=== PATIENT | female | born 1985 | race Caucasian/White ===

== ENCOUNTER 2020-10-05 08:40 | Inpatient (IN) ==
[2020-10-05] MEDS ORDERED: TERBUTALINE SULFATE 1 MG/ML VIAL SQ PRN (08:47)
--- NOTE | 2020-10-05 08:57 | Obstetrical Progress Note ---
Date of Service October 05, 2020 Assessment & Plan (1) Supervision of resulting from assisted reproductive technology, antepartum: (2) Breech presentation: Subjective 35yo at 38.1 weeks GA. Presents for ECV for persistent breech presentation. Consents for external cephalic version reviewed and signed today. Denies regular contractions, VB, LOF. Good FM. 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 muscular VSD, ok to deliver at [facility]. Followup 2w after delivery with peds. *Growth US Q 4wks @28wks *Weekly NSTs @36wks *Weekly ABIOLA's @36wks(ICSI only) Nuchal translucency scheduled 04/12/20 with [facility] *NT inconclusive, pt requesting amnio. scheduled for 05/09/20 - neg AFP and normal chromosomes Breech presentation *ECV scheduled 10/05 with Andrew. C/S SCHEDULED FOR 10/[address] PENDLETON Physical Exam Constitutional: WD/WN, vitals as above Gastrointestinal (Abdomen): Inspection/Auscultation: abdomen not distended Percussion/Palpation: abdomen soft; abdomen nontender, no guarding and abdomen not rigid Psychiatric: A+Ox3, euthymic affect Genitourinary: OB Exam Abdomen: + breech OB Exam Monitor Tracing: + external FHT monitor used, + external uterine monitor used, + category I and + normal FHT variability Reactive NST prior to procedure. PG Care Time/CCT Total # of Minutes Spent Total Time Spent with Patient: Total time spent is greater than 50% in coordination of care (as documented) at patient's floor/unit and/or counseling patient: Coding Diagnoses Supervision of resulting from assisted reproductive technology, antepartum O09.819 Breech presentation O32.1XX0
[2020-10-05 09:23] LABS: Basophils # (auto) 0.04 K/uL (0-0.2); Basophils % (auto) 0.4 %; Eosinophils # (auto) 0.18 K/uL (0-0.5); Eosinophils % (auto) 1.9 %; Hematocrit (blood only) 35.9 % (37-47); Hemoglobin 12.5 g/dL (12.0-16.0); Immature Granulocytes # (auto) 0.05 K/uL (0.00-0.02); Immature Granulocytes % (auto) 0.5 %; Lymphocytes # (auto) 3.45 K/uL (1.2-3.4); Lymphocytes % (auto) 36.5 %; Mean Corpuscular Hemoglobin 32.7 pg (25-34); Mean Corpuscular Hgb Conc 34.8 g/dL (32-36); Mean Platelet Volume 10.7 fL (7.4-10.4); Monocytes # (auto) 1.02 K/uL (0.11-0.59); Monocytes % (auto) 10.8 %; Neutrophils # (auto) 4.71 K/uL (1.4-6.5); Neutrophils % (auto) 49.9 %; Platelet Count 338 K/uL (130-400); RDW Coefficient of Variation 13.5 % (11.5-14.5); RDW Standard Deviation 46.2 fL (36.4-46.3); Red Blood Count 3.82 M/uL (4.2-5.4); White Blood Count 9.45 K/uL (4.8-10.8)
--- NOTE | 2020-10-05 11:34 | Ultrasound Report ---
US OB limited (NO CHARGE) CLINICAL HISTORY: ECV monitoring COMPARISON STUDY: 10/03/2020 FINDINGS: Ultrasound assistance was provided by the vacuum cleaner repair person during an external cephalic version. There is no radiologist participation. IMPRESSION: Ultrasound assistance provided by the vacuum cleaner repair person. ACT 112: Negative or not required by law. Electronically signed by: Mejia Lockhart M.D. 10/05/2020 11:33 AM
[2020-10-05] MEDS ORDERED: LACTATED RINGER'S 1,000 ML IV ONE ×2 (11:36→12:30)
[2020-10-05] MEDS ORDERED: LACTATED RINGER'S 1,000 ML IV PRN (14:07)
[2020-10-05] MEDS ORDERED: OXYTOCIN 30 UNITS/500 ML BAG IV PRN ×2 (14:07→14:08)
[2020-10-05] MEDS ORDERED: NALOXONE HCL 1 MG in SODIUM CHLORIDE 0.9% 1000ML 1,000 ML IV PRN (14:36)
[2020-10-05] MEDS ORDERED: diphenhydrAMINE 50 MG/ML VIAL IV PRN (14:36)
[2020-10-05] MEDS ORDERED: NALOXONE HCL 0.08 MG in SYRINGE 1.8 ML IV PRN (14:36)
[2020-10-05] MEDS ORDERED: MoRPHine SULFATE PF 1 MG/ML 10 ML AMP/VIAL INT SPINAL ONE (14:36)
[2020-10-05] MEDS ORDERED: NALOXONE HCL 0.4 MG/1 ML VIAL/CARP IV PRN (14:36)
[2020-10-05] MEDS ORDERED: ePHEDrine sulfate 50 MG/ML AMP IV PRN (14:36)
[2020-10-05] MEDS ORDERED: LACTATED RINGER'S 500 ML IV PRN (14:36)
[2020-10-05] MEDS ORDERED: ONDANSETRON INJ 2 MG/ML 2 ML VIAL IV PRN (14:36)
--- NOTE | 2020-10-05 14:36 | Anesthesiology Consultation ---
Date of Service October 05, 2020 Assessment & Plan ASA ASA3E Proposed Anesthesia Anesthesia Type: Spinal Risk / Benefits Reviewed With: PT / POA / Parent / Guardian, Accepts Plan and Informed Consent Obtained History Height/Weight Height: 5 ft 3 in Weight: 60.781 kg Allergies Allergy/AdvReac Type Severity Reaction Status Date / Time Sulfa (Sulfonamide Allergy Intermediate Vomit, Verified 10/05/20 08:57 Antibiotics) diarrhea chlorhexidine Allergy Mild RASH Verified 10/05/20 08:57 shellfish derived Allergy Vomiting Verified 10/05/20 08:58 Medications Home Medications Medication Instructions Recorded Confirmed Last Taken enoxaparin 40 mg SUBCUT DAILY 03/01/20 10/05/20 10/04/20 22:00 sertraline 50 mg tablet 50 mg PO DAILY #90 tab 06/06/20 10/05/20 10/04/20 21:30 prenat.vits,sophia,udo-qocr-vtozl 1 tab PO DAILY 10/05/20 10/05/20 10/04/20 21:30 [ Vitamin] Active Medications Generic Name Dose Route Start Last Admin Trade Name Freq PRN Reason Stop Dose Admin Terbutaline Sulfate 0.25 mg 10/05/20 08:47 10/05/20 10:48 Terbutaline Sulfate 1 Mg/Ml Vial SQ 11/04/20 08:46 0.25 mg ONCE PRN Administration Contractions NPO Date Last Intake of Fluids: 10/05/20 Time Last Intake of Fluids: 00:00 Date Last Intake of Solids: 10/05/20 Time Last Intake of Solids: 00:00 Past Medical History Medical History 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 Cerebral venous sinus thrombosis During treatment for a LL which was provoked by L asparaginase and was treated with Lovenox for a few months. No repeat thromboses since that time. 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 Hypertrophy of nasal turbinates Leukemia in remission 2009 Vaginal bleeding before 22 weeks gestation Exercise / Class Metabolic Activity 1 > 8 Run/Swim/Ski/Tennis Past Family History Family History Mother Hypertension Father Hypertension Past Surgical History Surgical History No history of previous surgery S/P colonoscopy Stem cells transplant status 2009 Past Anesthesia History No Hx of Anesthesia Complications and No Family Hx of Anesthesia Complications History of PONV No Hx of PONV and No Hx of Motion Sickness Social History Smoking Status: Never smoker Hx Alcohol Use: No Hx Substance Use: No Review of Systems denies fever/cough/ colds/ chest pain/ SOB/ IRMA denies IRMA Physical Exam Vital Signs Last Vital Signs Temp 37.3 C 10/05/20 08:52 Pulse 79 10/05/20 11:13 Resp 20 10/05/20 11:13 BP 91/52 L 10/05/20 11:13 ENMT Mouth: no TMJ abnormality and no dentition abnormality Thyromental Distance: > or= 3.5 Finger Breadths Mallampati Class: II Neck neck extension not limited Respiratory normal respiratory effort; no respiratory distress Auscultation: lungs clear to auscultation bilaterally Cardiovascular Rate/Rhythm: regular rate and regular rhythm Neurologic moves all extremities Psychiatric Orientation: alert and oriented x 3 Testing Laboratory Results 10/05/20 09:13 Blood Type O Positive 10/05/20 09:13 Antibody Screen NEGATIVE 10/05/20 09:13
[2020-10-05] MEDS ORDERED: OXYTOCIN 10 UNITS/ML VIAL ONE (14:42)
[2020-10-05] MEDS ORDERED: MoRPHine SULFATE PF 1 MG/ML 10 ML AMP/VIAL ONE (14:42)
[2020-10-05] MEDS ORDERED: fentaNYL citrate 100 MCG/2 ML VIAL ONE (14:42)
[2020-10-05] MEDS ORDERED: NO NARCOTICS OR SEDATIVES SCH (14:45)
[2020-10-05] MEDS ORDERED: SODIUM CHLORIDE 0.9% 1000ML 1,000 ML IV SCH (14:45)
[2020-10-05] MEDS ORDERED: DC INTRASPINAL MORPHINE SCH (14:45)
--- NOTE | 2020-10-05 14:54 | History & Physical Report ---
Date of Service October 05, 2020 Assessment & Plan (1) Breech presentation: (2) Successful external cephalic version: Maricel is a 35-year-old at 38 weeks 1 day gestational age presented for external cephalic version for persistent breech presentation. A successful external cephalic version was performed. During the monitoring phase after completion of that ECV recurrent variable deceleration and occasional deceleration is a lasting 3-4 minutes to the 70s was noted. As result we dis cussed delivery and after re-evaluation ultrasound there was noted be funic presentation which will require a as discussed per HPI. consents reviewed and signed. We will proceed with a section secondary to persistent category 2 tracing/ distress with funic presentation. (3) Funic presentation: (4) Supervision of resulting from assisted reproductive technology, antepartum: (5) resulting from in vitro fertilization: (6) distress affecting care: Admission and Anticipated Discharge Date Admission Date: October 05, 2020 History of Present Illness Primary Care Provider: Salvador Alston MD 35yo at 38.1 weeks GA. Presents for ECV for persistent breech presentation. Consents for external cephalic version reviewed and signed today. Denies regular contractions, VB, LOF. Good FM. 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 muscular VSD, ok to deliver at [facility]. Followup 2w after delivery with peds. *Growth US Q 4wks @28wks *Weekly NSTs @36wks *Weekly ABIOAL's @36wks(ICSI only) Nuchal translucency scheduled 04/12/20 with [facility] *NT inconclusive, pt requesting amnio. scheduled for 05/09/20 - neg AFP and normal chromosomes Breech presentation *ECV scheduled 10/05 with Andrew. C/S SCHEDULED FOR 10/[address] PENDLETON After a successful ECV was performed a period of extended monitoring was initiated. During the extended monitoring variable discolorations were noted to occur every 15 to 30 minutes. There was also a prolonged patient to the 70s for approximately 4 minutes. Decision at that point being that she had been monitored for approximately 2-1/2 hours with recurrent variables occurring that we should move towards delivery. I discussed this with several colleagues who agreed with proceeding with delivery. Prior to initiating any delivery care we performed a ultrasound and a funic presentation was noted. I discussed with Maricel and her that this is incompatible with vaginal delivery as a cord prolapse will occur with rupture of membranes. Discussed that cord prolapse is a obstetric emergency and that we would need to proceed with a section as result. consents were reviewed and signed. 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 Cerebral venous sinus thrombosis During treatment for a LL which was provoked by L asparaginase and was treated with Lovenox for a few months. No repeat thromboses since that time. 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 Hypertrophy of nasal turbinates Leukemia in remission 2009 Vaginal bleeding before 22 weeks gestation Surgical History No history of previous surgery S/P colonoscopy Stem cells transplant status 2009 Family History Mother Hypertension Father Hypertension Social History Smoking Status: Never smoker Hx Alcohol Use: No Hx Substance Use: No Preferred Language: Frisian Communication Ability: Effective Visual Impairment: No Limitations Hearing Ability: Normal Courtroom Deputy Or Calendar Clerk Required: No Beliefs That Will Affect Care: None marital status: marital status details: Timbo (38) [phone] Current Living Situation: Spouse Current Living Situation Comment: lives with spouse, 2 dogs. 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 [employer] Other Information That Helps Us Care for You: No Feels Safe at Home: Yes Safety Concerns: Feels Safe At This Time Seatbelt Use: always Assistive Devices: None Physical Exam Constitutional: WD/WN, vitals as above well developed, well nourished and + well hydrated; no acute distress Neck: trachea midline, no thyromegaly Respiratory: normal respiratory effort, lungs clear to auscultation no respiratory distress, no labored breathing and no cough Cardiovascular: RRR, no murmur, no edema Heart Sounds: normal S1 and normal S2 Gastrointestinal (Abdomen): normal bowel sounds, soft, nontender, no hepatosplenomegaly Inspection/Auscultation: abdomen not distended and no abdominal edema Skin: no rashes, warm and dry normal turgor Neurologic: PERRL, EOMI, accommodation nl, no face palsy, no dysarthria normal touch/pain/proprioception Psychiatric: A+Ox3, euthymic affect Apperance: appropriately dressed and appropriately groomed Genitourinary: normal external appearance Speculum/Bimanual Exam: normal appearance of the vagina OB Exam Abdomen: + vertex Manual OB Exam: + cervical dilation 4 cm, + cervical effacement 90% and + station high OB Exam Monitor Tracing: + external FHT monitor used, + external uterine monitor used, + category II and + variable decelerations Results & Data ([place]) Vital Signs (Past 12 Hours) Vital Signs Temp Pulse Resp BP 10/05/20 11:13 79 20 91/52 L 10/05/20 08:52 37.3 C 20 10/05/20 08:51 86 99/58 L Coding Level of Care Code None Diagnoses Breech presentation O32.1XX0 Successful external cephalic version Funic presentation O69.0XX0 Supervision of resulting from assisted reproductive technology, antepartum O09.819 resulting from in vitro fertilization O09.819 distress affecting care O36.8990
[2020-10-05] MEDS ORDERED: CITRIC ACID/SODIUM CITRATE 15 ML UDC ONE (14:58)
--- NOTE | 2020-10-05 15:06 | Ultrasound Report ---
US OB limited CLINICAL HISTORY: confirm position COMPARISON STUDY: Renal ultrasound 10/05/2020. FINDINGS: The head, foot, and umbilical cord are located in a cephalic position. Significant un changed. IMPRESSION: Follow-up ultrasound demonstrates a cephalic position of the head, foot, and umbil ical cord. This remains unchanged. ACT 112: Negative or not required by law. Electronically signed by: Christophe Orellana M.D. 10/05/2020 3:05 PM
[2020-10-05] MEDS ORDERED: ceFAZolin 2000MG 2,000 MG/15 ML SYR IV ONE (15:15)
[2020-10-05] MEDS: MoRPHine SULFATE 2 MG/ML CARP IV PRN (16:37)
[2020-10-05 16:39] LABS: Base Excess Cord Venous Blood -0.7 mEq/L (-7.7-1.9); Cord Venous Blood HCO3 24 mmol/L (18.4-26.8); Cord Venous Blood PCO2 40 mmHg (30.4-57.2); Cord Venous Blood PO2 24 mmHg (14.1-43.3); Cord Venous Blood pH 7.39 (7.20-7.44)
[2020-10-05] MEDS ORDERED: LACTATED RINGER'S 1,000 ML IV SCH ×2 (16:39)
[2020-10-05] MEDS ORDERED: DIPHTHERIA/TETANUS/PERTUSSIS 0.5 ML SYR/VIAL IM ONE (16:39)
[2020-10-05] MEDS ORDERED: MAGNESIUM HYDROXIDE SUSP 30 ML UDC PO PRN (16:39)
[2020-10-05] MEDS ORDERED: IBUPROFEN 600 MG TAB PO PRN (16:39)
[2020-10-05] MEDS ORDERED: BENZOCAINE 20% AER SPR 82.5 GM CAN EXT PRN (16:39)
[2020-10-05] MEDS ORDERED: HYDROCORTISONE ACETATE 25 MG SUPP PR PRN (16:39)
[2020-10-05] MEDS ORDERED: SUPERCREAM 0.870% 15 GM JAR EXT PRN (16:39)
[2020-10-05] MEDS ORDERED: SENNA 8.6 MG TAB PO PRN (16:39)
[2020-10-05 16:52] LABS: O2 Saturation Cord Venous Bld < 60.0 % (<68)
[2020-10-05] MEDS: SIMETHICONE 80 MG CHEW PO SCH ×2 (16:53→21:56)
--- NOTE | 2020-10-05 16:57 | Obstetrical Progress Note ---
Date of Service October 05, 2020 Assessment & Plan (1) Breech presentation: Procedure: EXTERNAL CEPHALIC VERSION After consents for the external cephalic version were obtained and ultrasound was performed for position with breech position noted with head in maternal right upper quadrant. An initial attempt at counter clockwise rotation was performed with lifting the caudal portion of the fetus out of the pelvis and rotational force applied. Fetus was able to be initially moved into transverse position and evaluation of heart tones was noted for heart rate in the 70s. This did quickly recover with maternal resuscitation at 10 minute delay the lateral resuscitation to occur was performed. After which the patient was dosed with TURP ultrasound reapplied in fetus noted to be back in the original position and re-attempt at the version with counter-clockwise rotation was performed without success. Discussed 1 more attempt which patient was agreeable to and after 4-5 minute evaluations performed a final and 3rd attempt was made. With this attempt most pressure was applied on the caudal portions with counter-clockwise rotation which did result in success of the external cephalic version. An ultrasound was performed to verify the cephalic position. monitoring was once again performed and after the unit recovered was noted to be initially in category 1 tracing with good variability. The decision was made to end the procedure and began extended monitoring. (2) Supervision of resulting from assisted reproductive technology, antepartum: Admission and Anticipated Discharge Date Admission Date: October 05, 2020 Results & Data ([facility]) Vital Signs (Past 12 Hours) Vital Signs Temp Pulse Resp BP Pulse Ox 10/05/20 16:51 67 100 10/05/20 16:50 63 20 107/65 10/05/20 16:46 63 100 10/05/20 16:41 70 99 10/05/20 16:40 64 20 107/56 L 10/05/20 16:36 62 100 10/05/20 16:31 63 98 10/05/20 16:30 37.2 C 62 16 104/62 10/05/20 15:05 86 112/69 10/05/20 11:13 79 20 91/52 L 10/05/20 08:52 37.3 C 20 10/05/20 08:51 86 99/58 L PG Care Time/CCT Total # of Minutes Spent Total Time Spent with Patient: Total time spent is greater than 50% in coordination of care (as documented) at patient's floor/unit and/or counseling patient: Coding Level of Care Code None Diagnoses Breech presentation O32.1XX0 Supervision of resulting from assisted reproductive technology, antepartum O09.819 CPT Codes Misx Procedure Codes - 37657 NST: 03116 NST ([id number]) Misx Procedure Codes - 60048 External cephalic version: 09772 External cephalic version ([id number]) CLIENT SERVICES VICE PRESIDENT Miscellaneous Codes Misx Procedure Codes 16842 NST 50339 External cephalic version
[2020-10-05] MEDS ORDERED: OXYTOCIN 20 UNITS in LACTATED RINGER'S 1,000 ML IV SCH (17:00)
[2020-10-05] MEDS: HYDROmorphone INJ 1 MG/ML SYRINGE IV PRN ×5 (17:28→23:10)
--- NOTE | 2020-10-05 17:53 | Anesthesiology Progress Note ---
Date of Service October 05, 2020 Anesthesia Post Procedure Vital Signs Vital Signs: Temp Pulse Resp BP Pulse Ox 10/05/20 17:51 79 99 10/05/20 17:46 71 100 10/05/20 17:41 72 99 10/05/20 17:36 63 99 10/05/20 17:31 69 99 10/05/20 17:30 69 20 110/63 10/05/20 17:26 70 98 10/05/20 17:21 68 99 10/05/20 17:20 69 20 112/73 10/05/20 17:16 64 99 10/05/20 17:11 65 99 10/05/20 17:10 83 18 96/61 L 10/05/20 17:06 69 98 10/05/20 17:01 66 99 10/05/20 17:00 65 18 112/68 10/05/20 16:56 73 100 10/05/20 16:51 67 100 10/05/20 16:50 63 20 107/65 10/05/20 16:46 63 100 10/05/20 16:41 70 99 10/05/20 16:40 64 20 107/56 L 10/05/20 16:36 62 100 10/05/20 16:31 63 98 10/05/20 16:30 37.2 C 62 16 104/62 10/05/20 15:05 86 112/69 10/05/20 11:13 79 20 91/52 L 10/05/20 08:52 37.3 C 20 10/05/20 08:51 86 99/58 L Pain Intensity Abdomen: Pain Intensity: 9 Transfer of Care Handoff Completed per policy Notes Mental Status: alert / awake / arousable and participated in evaluation Patient Amnestic to Procedure: Yes Nausea / Vomiting: adequately controlled Pain: adequately controlled Airway Patency, RR, SpO2: stable & adequate BP & HR: stable & adequate Hydration State: stable & adequate Anesthetic Complications: no major complications apparent and Pt Satisfied with anesthetic care
[2020-10-05] MEDS: DOCUSATE SODIUM 100 MG CAP PO SCH (21:57)
[2020-10-06] MEDS: MoRPHine SULFATE 2 MG/ML CARP IV PRN (02:59)
[2020-10-06] MEDS: HYDROmorphone INJ 1 MG/ML SYRINGE IV PRN (05:35)
--- NOTE | 2020-10-06 06:45 | Obstetrical Progress Note ---
Date of Service <Jose Chu MD - Last Filed: 10/06/20 07:37> October 06, 2020 Assessment & Plan <Jose Chu MD - Last Filed: 10/06/20 07:37> (1) resulting from in vitro fertilization: - PNL: Rh pos, RI, GBS neg, COVID neg - Feels well today - Pain well controlled with analgesics - Routine postoperative care -- OOB, ambulation, diet progression as tolerated - Hernandez out when able to ambulate - After discharge will have 6 week follow-up with Dr. Morales (2) Funic presentation: Subjective <Jose Chu MD - Last Filed: 10/06/20 07:37> Maricel is a 35 y/o female who is POD #1 following delivery at 38 1/7 weeks. She reports feeling well overall this morning. Mild abdominal cramping and 4/10 pain well managed on analgesics. Hernandez in as patient has yet to ambulate. Tolerating oral fluids overnight without difficulty. Not passing gas or had BM yet. Has persistent lochia with some improvement this morning. Currently without issues. Review of Systems Denies fever or chills. Denies shortness of breath or cough. Denies chest pain. Denies breast pain. Denies dysuria. Denies leg pain or leg swelling. Denies headache or changes in vision. Physical Exam <Jose Chu MD - Last Filed: 10/06/20 07:37> General: Alert, oriented. No acute distress. Cardiac: Regular rate and rhythm. No murmurs. Respiratory: Clear to auscultation bilaterally a/p, no wheezes/rales/rhonchi. No increased work of breathing. Symmetrical chest rise. No respiratory distress. Abdomen: Soft, nontender, nondistended. Bowel sounds present. Uterus: Uterine fundus firm, palpable ~1 cm below umbilicus. Surgical scar clean and healing well. Lower Extremities: No lower extremity edema or swelling. No deep calf pain. Luis M's negative bilaterally. Results & Data ([facility]) <Jose Chu MD - Last Filed: 10/06/20 07:37> Vital Signs (Past 12 Hours) Vital Signs Temp Pulse Pulse Pulse Resp BP BP 10/06/20 06:43 16 10/06/20 06:01 18 10/06/20 05:00 18 10/06/20 04:00 18 10/06/20 03:05 36.9 C 83 18 98/53 L 10/06/20 01:19 18 10/06/20 00:45 18 10/06/20 00:30 18 10/05/20 23:35 18 10/05/20 23:05 36.8 C 74 18 104/56 L 10/05/20 23:00 18 10/05/20 22:00 17 10/05/20 21:00 17 10/05/20 20:00 36.7 C 76 17 108/60 10/05/20 19:21 81 10/05/20 19:16 81 10/05/20 19:11 98 H 10/05/20 19:06 89 10/05/20 19:01 86 10/05/20 19:00 81 123/68 10/05/20 18:56 82 10/05/20 18:51 92 H 10/05/20 18:46 91 H Pulse Ox 10/06/20 06:43 96 10/06/20 06:01 95 10/06/20 05:00 94 10/06/20 04:00 96 10/06/20 03:05 96 10/06/20 01:19 94 10/06/20 00:45 95 10/06/20 00:30 96 10/05/20 23:35 92 10/05/20 23:05 995 H 10/05/20 23:00 95 10/05/20 22:00 96 10/05/20 21:00 97 10/05/20 20:00 95 10/05/20 19:21 93 10/05/20 19:16 95 10/05/20 19:11 94 10/05/20 19:06 96 10/05/20 19:01 97 10/05/20 19:00 10/05/20 18:56 95 10/05/20 18:51 95 10/05/20 18:46 95 <Wilver Morales MD - Last Filed: 10/06/20 08:33> Co-Signing Physician Notes Patient seen and evaluated and agree with the above findings and plan. Restarted Lovenox this am. Resident Activity Tracking <Jose Chu MD - Last Filed: 10/06/20 07:37> Resident Involvement: Resident Care Provided Care Provided: OB Delivery
[2020-10-06 06:48] LABS: Basophils # (auto) 0.05 K/uL (0-0.2); Basophils % (auto) 0.4 %; Eosinophils # (auto) 0.17 K/uL (0-0.5); Eosinophils % (auto) 1.4 %; Hematocrit (blood only) 34.6 % (37-47); Hemoglobin 12.1 g/dL (12.0-16.0); Immature Granulocytes # (auto) 0.03 K/uL (0.00-0.02); Immature Granulocytes % (auto) 0.2 %; Lymphocytes # (auto) 2.61 K/uL (1.2-3.4); Lymphocytes % (auto) 21.5 %; Mean Corpuscular Hemoglobin 32.6 pg (25-34); Mean Corpuscular Volume 93.3 fL (80-100); Mean Platelet Volume 10.3 fL (7.4-10.4); Monocytes % (auto) 13.2 %; Neutrophils # (auto) 7.67 K/uL (1.4-6.5); Neutrophils % (auto) 63.3 %; Platelet Count 219 K/uL (130-400); RDW Coefficient of Variation 13.5 % (11.5-14.5); RDW Standard Deviation 46.1 fL (36.4-46.3); Red Blood Count 3.71 M/uL (4.2-5.4); White Blood Count 12.13 K/uL (4.8-10.8)
[2020-10-06] MEDS: FERROUS SULFATE 325 MG TAB PO SCH (08:21)
[2020-10-06] MEDS: PRENATAL VITAMIN 1 TAB PO SCH (08:21)
[2020-10-06] MEDS: SIMETHICONE 80 MG CHEW PO SCH ×4 (08:22→21:19)
[2020-10-06] MEDS: DOCUSATE SODIUM 100 MG CAP PO SCH ×2 (08:22→21:19)
[2020-10-06] MEDS ORDERED: oxyCODONE/ACETAMINOPHEN 5mg/325mg TAB PO PRN (08:36)
[2020-10-06] MEDS ORDERED: KETOROLAC 30 MG/ML VIAL IV PRN (08:36)
[2020-10-06] MEDS ORDERED: diphenhydrAMINE Capsule 25 MG CAP PO PRN (08:37)
[2020-10-06] MEDS ORDERED: PROMETHAZINE HCL 25 MG in SODIUM CHLORIDE 0.9% 50 ML IV PRN (08:37)
[2020-10-06] MEDS ORDERED: ONDANSETRON INJ 2 MG/ML 2 ML VIAL IV PRN (08:37)
[2020-10-06] MEDS ORDERED: diphenhydrAMINE 50 MG/ML VIAL IV PRN (08:37)
--- NOTE | 2020-10-06 09:03 | Communication Note ---
Date of Service: October 06, 2020 Discussed re-instituting of therapeutic Sub-Q Lovenox w/pharmacist and it has been agreed to restart at 1535 or later this afternoon.
[2020-10-06 09:07] LABS: Creatinine Clr Calc Pharmacy 182.1 ml/min; Est GFR (African American) > 150.0 ml/min; Est GFR (Non-African American) 140.7 ml/min
[2020-10-06] MEDS ORDERED: MoRPHine SULFATE IR 15 MG TAB (IMMEDIATE RELEASE) PO ONE (09:42)
[2020-10-06] MEDS: ACETAMINOPHEN 325 MG TAB PO PRN ×4 (09:43→23:40)
[2020-10-06] MEDS: IBUPROFEN 600 MG TAB PO PRN ×4 (09:43→23:39)
[2020-10-06] MEDS ORDERED: ENOXAPARIN INJ 30 MG/0.3 ML SYR SQ ONE (10:00)
--- NOTE | 2020-10-06 14:50 | Operative Report (OR) ---
DATE OF OPERATION: 10/05/2020 PROCEDURE: Primary low transverse section. SURGEON: Wilver Morales MD. SALES REPRESENTATIVE LIVESTOCK: Jose Chu, PGY-1. PREOPERATIVE DIAGNOSES: 1. Single intrauterine at 38 weeks 1 day gestational age. 2. Status post successful external cephalic version. 3. Persistent category 2 tracing, requiring delivery. 4. Funic cord presentation requiring delivery via section. POSTOPERATIVE DIAGNOSES: 1. Single intrauterine at 38 weeks 1 day gestational age. 2. Status post successful external cephalic version. 3. Persistent category 2 tracing, requiring delivery. 4. Funic cord presentation requiring delivery via section. 5. Status post procedure. ESTIMATED BLOOD LOSS: 500 mL. DRAINS: None. FLUIDS: Continuous lactated Ringer. URINE OUTPUT: Per Hernandez catheter. COMPLICATIONS: None. FINDINGS: Viable male infant with weight and Apgars pending. Significant umbilical cord noted preceding the head at cervix. Normal-appearing uterus and fallopian tubes. 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 DESCRIPTION OF PROCEDURE: The patient was taken to the operating room after consents were ensured. Upon presentation, she was properly identified. Spinal anesthesia was obtained without difficulty. The patient was then prepped and draped in the normal sterile fashion. A preprocedural timeout was performed, after which appropriate surgical levels were checked. A Pfannenstiel incision was then made with a knife. This was carried down to underlying fascia with the Bovie and blunt dissection. The fascia was then nicked at midline with a knife and extended laterally in each direction with pickups and Monge scissors. Superior aspect of the fascia was grasped with Kochers x2, elevated off the underlying rectus muscles using blunt dissection. Inferior aspect of the fascia was grasped with Kochers x2, elevated off the underlying rectus muscles using blunt dissection. The midline was then entered bluntly, placed on stretch to provide adequate room for delivery. The bladder blade was inserted. Bladder flap was created in normal fashion. The head of the was noted to be in cephalic position and a low transverse uterine incision was then made with a knife. The findings per above with the funic cord presentation was confirmed and the head of the was delivered through hysterotomy without difficulty, the body and shoulders quickly followed. was noted to be vigorous soon after delivery and a 30-second delayed cord clamping was initiated. Cord was then double clamped and cut. was taken to the awaiting nursery staff. Cord segment and cord blood was obtained. Attention was then turned to deliver the placenta, which was delivered intact, 3-vessel cord with gentle cord traction and uterine massage. Uterus was then exteriorized. Several passes were made inside to remove any remaining membranes with a wet lap. The uterus was then wrapped in a wet lap. The hysterotomy was then reapproximated with 0 Vicryl continuous running locked stitch. A second imbricating layer of 0 Vicryl was performed. The hysterotomy was noted to be hemostatic and the posterior cul-de-sac was cleaned of clots and debris. Uterus was then returned to the maternal abdomen. The hysterotomy was then reinspected and noted to be hemostatic. The right and left paracolic gutters were inspected and noted to be free of clot and debris. The subcutaneous fascial and muscle layers were inspected and noted to be hemostatic. Fascia was then reapproximated with 0 Vicryl continuous running stitch. The subcutaneous layers were reapproximated with 2-0 plain with continuous running stitch. The skin was reapproximated with a 3-0 Vicryl with a Randy needle in a subcuticular stitch. Dermabond was placed on top. Needle, sponge and instrument counts were correct at the completion of the case. Both mother and were stable in the immediate post-delivery period. I attest to the content of the Intraoperative Record and any orders documented therein. Any exceptions are noted below. ROBBYD
[2020-10-06] MEDS: MoRPHine SULFATE IR 15 MG TAB (IMMEDIATE RELEASE) PO PRN ×2 (16:03→21:36)
[2020-10-06] MEDS ORDERED: bisacodyL 5 MG TABEC PO SCH (20:00)
[2020-10-06] MEDS: ENOXAPARIN INJ 60 MG/0.6 ML SYR SQ SCH (21:29)
[2020-10-06] MEDS: SERTRALINE HCL 50 MG TABLET PO SCH (22:55)
[2020-10-07] MEDS: MoRPHine SULFATE IR 15 MG TAB (IMMEDIATE RELEASE) PO PRN ×4 (04:01→21:57)
[2020-10-07 06:18] LABS: Hematocrit (blood only) 33.8 % (37-47); Hemoglobin 11.6 g/dL (12.0-16.0)
[2020-10-07] MEDS: SIMETHICONE 80 MG CHEW PO SCH ×4 (07:57→21:09)
[2020-10-07] MEDS: PRENATAL VITAMIN 1 TAB PO SCH (07:57)
[2020-10-07] MEDS: ACETAMINOPHEN 325 MG TAB PO PRN ×3 (07:57→21:09)
[2020-10-07] MEDS: DOCUSATE SODIUM 100 MG CAP PO SCH ×2 (07:57→21:09)
[2020-10-07] MEDS: FERROUS SULFATE 325 MG TAB PO SCH (07:57)
[2020-10-07] MEDS: IBUPROFEN 600 MG TAB PO PRN ×3 (07:58→18:17)
--- NOTE | 2020-10-07 08:07 | Obstetrical Progress Note ---
Date of Service October 07, 2020 Assessment & Plan (1) Encounter for care and examination after delivery: understandable abdominal tenderness today after external version and then section TCK is WNL continue current care plan Subjective Ambulation: ambulating normally Voiding: no voiding problems (some urethral pain with urination this AM) Passing Gas:: Yes Diet Tolerance:: regular diet Lochia:: Small Review of Systems All systems reviewed & are unremarkable except as noted in HPI & below abdominal wall sore today - had been awhile since she had any pain meds. Physical Exam Constitutional WD/WN, vitals as above Gastrointestinal (Abdomen) Inspection/Auscultation: abdomen normal to inspection and + abdominal surgical incision (intact , no erythema) Psychiatric A+Ox3, euthymic affect Genitourinary OB Exam Abdomen: + fundal height Fundus: + firm and + relation to umbilicus (1 above U) Results & Data ([facility]) Vital Signs (Past 12 Hours) Vital Signs Temp Pulse Pulse Resp BP BP Pulse Ox 10/07/20 07:10 98.2 F 67 18 104/58 L 95 10/06/20 23:00 97.9 F 68 16 106/68 96 10/06/20 20:10 98.1 F 72 16 107/67 94
[2020-10-07] MEDS ORDERED: bisacodyL 10 MG SUPP PR PRN (16:09)
[2020-10-07] MEDS: SERTRALINE HCL 50 MG TABLET PO SCH (21:08)
[2020-10-07] MEDS: ENOXAPARIN INJ 60 MG/0.6 ML SYR SQ SCH (21:11)
[2020-10-08] MEDS: ACETAMINOPHEN 325 MG TAB PO PRN ×2 (00:42→06:33)
[2020-10-08] MEDS: IBUPROFEN 600 MG TAB PO PRN ×3 (00:42→13:24)
[2020-10-08] MEDS: MoRPHine SULFATE IR 15 MG TAB (IMMEDIATE RELEASE) PO PRN (03:35)
[2020-10-08] MEDS ORDERED: ACETAMINOPHEN W/CODEINE #3 1 TAB PO PRN (07:18)
--- NOTE | 2020-10-08 07:18 | Obstetrical Progress Note ---
Date of Service October 08, 2020 Assessment & Plan (1) Encounter for care and examination after delivery: doing well but will try 1/2 tab of percocet for pain relief with order to repeat dose if necessary in 1/2 hour to see if she tolerates this dosing regimen plan discharge later today if tolerating po percocet. can also try tylenol #3 which I will also order for her. Subjective Ambulation: ambulating normally Voiding: no voiding problems Diet Tolerance:: regular diet Lochia:: Small Feeding Type:: breast feeding still getting IV morphine for pain relief. has not tried percocet because it has caused vomiting in the past. Physical Exam Constitutional WD/WN, vitals as above Gastrointestinal (Abdomen) normal bowel sounds, soft, nontender, no hepatosplenomegaly Inspection/Auscultation: + abdominal surgical incision (dry and intact, ecchymosis surrounding the incision. no hematoma) Psychiatric A+Ox3, euthymic affect Genitourinary OB Exam Abdomen: + fundal height Fundus: + firm and + relation to umbilicus (2 below U) Results & Data ([facility]) Vital Signs (Past 12 Hours) Vital Signs Temp Pulse Resp BP Pulse Ox 10/08/20 00:45 97.7 F 68 16 103/57 L 96 10/07/20 20:00 98.2 F 82 16 109/71 98
[2020-10-08] MEDS: SIMETHICONE 80 MG CHEW PO SCH ×2 (08:24→13:23)
[2020-10-08] MEDS: DOCUSATE SODIUM 100 MG CAP PO SCH (08:24)
[2020-10-08] MEDS: FERROUS SULFATE 325 MG TAB PO SCH (08:24)
[2020-10-08] MEDS: PRENATAL VITAMIN 1 TAB PO SCH (08:24)
[2020-10-08 08:44] VITALS: TEMP 98.2; O2SAT 95
[2020-10-08] MEDS: oxyCODONE/ACETAMINOPHEN 5mg/325mg TAB PO PRN ×2 (09:21→13:24)
[2020-10-08 12:49] VITALS: BP 106/68; PULSE 80
--- NOTE | 2020-10-09 23:48 | Discharge Summary (DS) ---
DATE OF DISCHARGE: 10/08/2020. PROCEDURES WHILE ADMITTED: External cephalic version, primary low transverse section. HOSPITAL COURSE: The patient was initially admitted for observation and an external cephalic version. External cephalic version was successfully performed, although this did result in a funic presentation and secondary to recurrent variable decelerations warranted delivery. A primary low transverse section was performed without complication. The patient remained in- house until postoperative day 3, at which time she was meeting criteria for discharge. The patient was placed on Lovenox during her course. We will continue this for 6 to 12 weeks per hematology recommendation. The patient was given a prescription for Lovenox at discharge. She was discharged home in stable condition. The patient was provided both written and verbal discharge instructions. Job ID: [id number] [facility]
== END 2020-10-08 14:00 | disposition home or self-care (01) | DRG 787 ==
LOC: OPB 08:40 → 4S1 08:41 → 4S2 19:39

== ENCOUNTER 2021-04-30 12:34 | Inpatient (IN) ==
--- NOTE | 2021-04-30 13:29 | Emergency Department Note ---
History of Present Illness General Chief complaint: Illness Stated complaint: HEADACHE, PULSE OX 75 Time Seen by Provider: 04/30/21 13:00 History of Present Illness Provider complaint: Shortness of breath lips blue headache Onset (ago): day(s) 2 Associated symptoms: + headaches and + shortness of breath; no chest pain, no cough, no fever/chills or no nausea/vomiting 35-year-old female presents emergency department for difficulty breathing. Patient reports her symptoms are gone for last 2 days. She reports yesterday she started noticing the lips were turning blue so she came to the emergency department. Patient states she was discharged yesterday. Patient states this morning she noticed her lips and fingers were blue and she took her home oxygen level with a home pulse oximeter was in 70s so she returned to the emergency department at the request of her friend who is also physician. Home Medications Medication Instructions Recorded Confirmed Type acyclovir 400 mg tablet 400 mg PO Q12 04/30/21 04/30/21 History dapsone 100 mg tablet 100 mg PO HS 04/30/21 04/30/21 History sertraline 50 mg tablet 50 mg PO HS 04/30/21 04/30/21 History tacrolimus 1 mg capsule, 2 mg PO Q12 04/30/21 04/30/21 History immediate-release Allergies Allergy/AdvReac Type Severity Reaction Status Date / Time Sulfa (Sulfonamide Allergy Intermediate Vomit, Verified 04/30/21 14:15 Antibiotics) diarrhea chlorhexidine Allergy Mild RASH Verified 04/30/21 14:15 shellfish derived Allergy Vomiting Verified 04/30/21 14:15 Past Med/Surg History Medical History 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 Cerebral venous sinus thrombosis During treatment for a LL which was provoked by L asparaginase and was treated with Lovenox for a few months. No repeat thromboses since that time. 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 [employer] Feels Safe at Home: Yes Seatbelt Use: always Assistive Devices: None Review of Systems A total of 10 systems reviewed and were otherwise negative Physical Exam Vital Signs Vital Signs - 24 hr 04/30/21 12:37 04/30/21 12:44 04/30/21 13:45 Temperature 36.5 C Temperature Source Temporal Artery Scan Pulse Rate 106 H Pulse Rate from SpO2 Sensor Pulse Rhythm Regular Pulse Strength Normal Respiratory Rate 16 Respiratory Effort / Characteristics Non-Labored Spontaneous Respiratory Depth Normal Blood Pressure 107/69 Blood Pressure Mean 81 Pulse Oximetry 89 L 96 89 L Oxygen Delivery Method Room Air Nasal Cannula Nasal Cannula Oxygen Flow Rate 2 2 Sepsis Recent Fever Within 48 Hours No Sepsis New/Unexplained Change in Mental Status No Sepsis Action Taken by Nursing No Action Required Oxygen Flow Rate - Titration 3 Pulse Oximetry Post Tiitration 93 04/30/21 13:51 04/30/21 14:15 04/30/21 14:30 Temperature Temperature Source Pulse Rate 79 78 Pulse Rate from SpO2 Sensor 72 75 Pulse Rhythm Pulse Strength Respiratory Rate 23 22 Respiratory Effort / Characteristics Respiratory Depth Blood Pressure 100/74 Blood Pressure Mean 82 Pulse Oximetry 89 L 90 93 Oxygen Delivery Method Nasal Cannula Oxygen Flow Rate 2 3 3 Sepsis Recent Fever Within 48 Hours Sepsis New/Unexplained Change in Mental Status Sepsis Action Taken by Nursing Oxygen Flow Rate - Titration Pulse Oximetry Post Tiitration 04/30/21 15:04 04/30/21 15:30 04/30/21 16:00 Temperature Temperature Source Pulse Rate 71 74 Pulse Rate from SpO2 Sensor 72 73 Pulse Rhythm Pulse Strength Respiratory Rate 17 19 Respiratory Effort / Characteristics Respiratory Depth Blood Pressure 119/71 111/78 91/65 L Blood Pressure Mean 87 89 73 Pulse Oximetry 90 93 Oxygen Delivery Method Oxygen Flow Rate Sepsis Recent Fever Within 48 Hours Sepsis New/Unexplained Change in Mental Status Sepsis Action Taken by Nursing Oxygen Flow Rate - Titration Pulse Oximetry Post Tiitration 04/30/21 16:30 04/30/21 17:00 04/30/21 17:30 Temperature Temperature Source Pulse Rate 76 77 66 Pulse Rate from SpO2 Sensor 76 72 67 Pulse Rhythm Pulse Strength Respiratory Rate 14 21 16 Respiratory Effort / Characteristics Respiratory Depth Blood Pressure 108/75 105/77 109/80 Blood Pressure Mean 86 86 89 Pulse Oximetry 92 90 93 Oxygen Delivery Method Oxygen Flow Rate Sepsis Recent Fever Within 48 Hours Sepsis New/Unexplained Change in Mental Status Sepsis Action Taken by Nursing Oxygen Flow Rate - Titration Pulse Oximetry Post Tiitration 04/30/21 18:00 Temperature Temperature Source Pulse Rate 67 Pulse Rate from SpO2 Sensor Pulse Rhythm Pulse Strength Respiratory Rate 20 Respiratory Effort / Characteristics Respiratory Depth Blood Pressure 102/77 Blood Pressure Mean 85 Pulse Oximetry Oxygen Delivery Method Oxygen Flow Rate Sepsis Recent Fever Within 48 Hours Sepsis New/Unexplained Change in Mental Status Sepsis Action Taken by Nursing Oxygen Flow Rate - Titration Pulse Oximetry Post Tiitration Physical Exam GENERAL: She is oriented to person, place, and time. She appears well-developed and well-nourished. She does not appear distressed. HENT: Exam performed. -Head: Normocephalic and atraumatic. -Right Ear: External ear normal. No mastoid tenderness. -Left Ear: External ear normal. No mastoid tenderness. -Mouth/Throat: The oropharynx is clear and moist. No trismus in the jaw. No dental abscesses or uvula swelling. No oropharyngeal exudate or tonsillar abscesses. Perioral cyanosis. EYES: Conjunctivae and EOM are normal. Pupils are equal, round, and reactive to light. Right eye exhibits no discharge. Left eye exhibits no discharge. No scleral icterus. NECK: Normal range of motion. Neck supple. No JVD present. No spinous process tenderness present. No carotid bruit present. No rigidity. No tracheal deviation and normal range of motion present. No Brudzinski's sign and no Kernig's sign noted. CV: Tachycardic rate, regular rhythm, normal heart sounds and intact distal pulses. There is no peripheral edema. Palpable radial pulses bue. PULM/CHEST: Effort normal and breath sounds normal. No respiratory distress. No stridor. She has no wheezes. She has no rales. -Chest Wall: She exhibits no tenderness. ABD: The abdomen is soft. Bowel sounds are normal. She has no distension. No mass is present. There is no tenderness. There is no rebound, no guarding, no Navarrete's sign and no tenderness at McBurney's point. Rovsig negative MUSC/SKEL: Normal range of motion. There is no peripheral edema, tenderness or deformity. Cyanotic finger beds. LYMPH: No cervical adenopathy. NEURO: She is alert and oriented to person, place, and time. She has normal strength. No cranial nerve deficit or sensory deficit. Coordination and gait normal. GCS eye subscore is 4. GCS verbal subscore is 5. GCS motor subscore is 6. Cerebellar tests wnl. SKIN: Skin is warm and dry. She is not diaphoretic. PSYCH: She has a normal mood and affect. Behavior is normal. Judgment and thought content normal. Course Course 1300: The patient was evaluated in room D8. A complete history and physical exam was performed Cardiac monitoring: An order was placed for continuous cardiac monitoring. The monitor shows a rate of 105 with sinus tachycardia rhythm Patient was seen immediately in the critical pathways bed D8. Patient was found to be hypoxic on room air in triage and patient was mainly placed on supplemental oxygen via nasal cannula. EMR reviewed. Patient was seen in the emergency department yesterday and had blood work done which showed normal white blood cell count, normal troponin, and normal D-dimer. Chest x-ray was negative. Patient also had a Covid influenza and RSV swab which were negative. On further discussion with the patient the patient does states she has a history of obxow-sutrlm-mjge disease from stem cell transplant and follows up with [facility]. The patient does have perioral cyanosis in sinuses or fingernails. On further review with the patient, the patient was recently started on dapsone in November. There is strong concern for methemoglobinemia. Patient started on supplemental oxygen which improved her oxygen saturation. Patient's states that their friend is a physician and that he recommended them come to the back to the emergency department to have a CT angio of her chest to rule out PE. This will also be conducted. 1433: Vital signs stable on supplemental oxygen via nasal cannula. Labs do show methemoglobin level greater than 10. I spoke with the lab and they stated that they cannot give an exact number because that is the range and her level is too high that is out of range. Given the patient's clinical presentation level and the methemoglobin level it is thought that she is suffering from methemoglobinemia. Patient is stable on supplemental oxygen via nasal cannula. Blood pressure stable. Patient is not a candidate for methylene blue as she is currently on sertraline. Patient does state that she took sertraline today. Given the patient is on sertraline, methylene blue would be contraindicated due to potential serotonin syndrome reaction. Discussed with pharmacy and reviewed in up-to-date, and it stays excoriated acid can be given to help with patients with methemoglobinemia who have methylene blue contraindicated due to G6PD if patient is on SSRI. I did discuss this with the patient and they are willing to try the ascorbic acid. We will give 5 g IV. Patient does see hematology at [facility]. Spoke with Dr. Ahumada on-call hematology. 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 She is recommend stopping the dapsone immediately. She is okay with patient receiving ascorbic acid and does agree that the patient not receive methylene blue at this time given that she is on sertraline. Since the patient must stop dapsone immediately, she does recommend atovaquone 750 mg p.o. twice daily to prevent against any infection since patient is immunocompromised and on Prograf. I did discuss with Dr. Ahumada and confirmed that the patient can get atovaquone as antimalarials can cause methemoglobinemia reactions also and she stated that she is given atovaquone many times for people with methemoglobinemia induced by da psone and she is not concerned about this worsening or reducing her methemoglobinemia again. Patient we will start atovaquone tomorrow as she took her dapsone recently. We will still conduct a CT of the chest rule out PE. 1528: Vital signs stable on supplemental oxygen via nasal cannula. CTA of the chest and CT of the head are within normal limits. ABG does confirm a arterial sample with PaO2 Of 147. Patient will be admitted to the [facility] service Dr. Erwin team notified. Administered Medications Discontinued Medications Ascorbic Acid 5,000 mg/ Sodium (Chloride) 260 mls @ 86.667 mls/hr IV NOW ONE Stop: 04/30/21 17:29 Last Admin: 04/30/21 15:23 Dose: 86.7 mls/hr Documented by: [id number] Ioversol (Optiray 320 125ml) 116 ml IV ONCE ONE Stop: 04/30/21 14:56 Last Admin: 04/30/21 14:59 Dose: 116 ml Documented by: [id number] Critical Care Time Critical Care Time: Yes Total Critical Care Time: 43 I have personally spent greater than 43 minutes of critical care time in the direct management of this patient. This includes bedside care, interpretation of diagnostic studies, and testing, discussion with consultants, patient, and family members, and other required patient management activities. This 43 minutes is in excess of all separately billable procedures. Medical Decision Making Laboratory Data Result diagrams: 04/30/21 13:42 04/30/21 13:42 Lab Results 04/30/21 04/30/21 04/30/21 Range/Units 13:17 13:42 13:42 WBC 10.34 (4.8-10.8) K/uL RBC 4.26 (4.2-5.4) M/uL Hgb 13.4 (12.0-16.0) g/dL Hct 38.6 (37-47) % MCV 90.6 (80-100) fL MCH 31.5 (25-34) pg MCHC 34.7 (32-36) g/dL RDW Std Deviation 45.2 (36.4-46.3) fL RDW Coeff of Ranulfo 13.9 (11.5-14.5) % Plt Count 313 (130-400) K/uL MPV 9.8 (7.4-10.4) fL Immature Gran % (Auto) 0.2 % Neut % (Auto) 56.3 % Lymph % (Auto) 33.8 % Mingo % (Auto) 8.3 % Eos % (Auto) 0.8 % Baso % (Auto) 0.6 % Neut # (Auto) 5.83 (1.4-6.5) K/uL Lymph # (Auto) 3.49 H (1.2-3.4) K/uL Mingo # (Auto) 0.86 H (0.11-0.59) K/uL Eos # (Auto) 0.08 (0-0.5) K/uL Baso # (Auto) 0.06 (0-0.2) K/uL Immature Gran # (Auto) 0.02 (0.00-0.02) K/uL PT 10.3 (9.0-12.0) Seconds INR 1.0 (0.9-1.1) APTT 25.9 (21.0-31.0) Seconds PTT Ratio 1.0 ABG pH 7.58 H* (7.35-7.45) ABG pCO2 22 L (35-46) mmHg ABG pO2 147 H (80-95) mmHg ABG HCO3 20 (19-24) mmol/L ABG O2 Saturation 94.7 (90-95) % ABG Base Excess 0.8 (-9-1.8) mEq/L Jose Ramon Test Pos (Pos) Carboxyhemoglobin % THgb Methemoglobin (0.0-1.5) % Barometric Pressure 738.3 mm/Hg Oxygen Given FR2 Sodium (136-145) mmol/L Potassium (3.5-5.1) mmol/L Chloride (98-107) mmol/L Carbon Dioxide (21-32) mmol/L Anion Gap (3-11) BUN (7-18) mg/dl Creatinine (0.6-1.2) mg/dl Est Cr Clr Drug Dosing ml/min Est GFR ( Amer) ml/min Est GFR (Non-Af Amer) ml/min BUN/Creatinine Ratio (10-20) Glucose (70-99) mg/dl Calcium (8.5-10.1) mg/dl Magnesium (1.8-2.4) mg/dl Troponin I (0-0.045) ng/ml 04/30/21 04/30/21 04/30/21 Range/Units 13:42 13:42 13:42 WBC (4.8-10.8) K/uL RBC (4.2-5.4) M/uL Hgb (12.0-16.0) g/dL Hct (37-47) % MCV (80-100) fL MCH (25-34) pg MCHC (32-36) g/dL RDW Std Deviation (36.4-46.3) fL RDW Coeff of Ranulfo (11.5-14.5) % Plt Count (130-400) K/uL MPV (7.4-10.4) fL Immature Gran % (Auto) % Neut % (Auto) % Lymph % (Auto) % Mingo % (Auto) % Eos % (Auto) % Baso % (Auto) % Neut # (Auto) (1.4-6.5) K/uL Lymph # (Auto) (1.2-3.4) K/uL Mingo # (Auto) (0.11-0.59) K/uL Eos # (Auto) (0-0.5) K/uL Baso # (Auto) (0-0.2) K/uL Immature Gran # (Auto) (0.00-0.02) K/uL PT (9.0-12.0) Seconds INR (0.9-1.1) APTT (21.0-31.0) Seconds PTT Ratio ABG pH (7.35-7.45) ABG pCO2 (35-46) mmHg ABG pO2 (80-95) mmHg ABG HCO3 (19-24) mmol/L ABG O2 Saturation (90-95) % ABG Base Excess (-9-1.8) mEq/L Jose Ramon Test (Pos) Carboxyhemoglobin 0.0 % THgb Methemoglobin > 10.0 H (0.0-1.5) % Barometric Pressure mm/Hg Oxygen Given Sodium 140 (136-145) mmol/L Potassium 3.8 (3.5-5.1) mmol/L Chloride 110 H (98-107) mmol/L Carbon Dioxide 24 (21-32) mmol/L Anion Gap 6.0 (3-11) BUN 10 (7-18) mg/dl Creatinine 0.57 L (0.6-1.2) mg/dl Est Cr Clr Drug Dosing 110.0 ml/min Est GFR ( Amer) 140.2 ml/min Est GFR (Non-Af Amer) 121.0 ml/min BUN/Creatinine Ratio 17.2 (10-20) Glucose 85 (70-99) mg/dl Calcium 9.5 (8.5-10.1) mg/dl Magnesium 2.0 (1.8-2.4) mg/dl Troponin I < 0.015 (0-0.045) ng/ml 04/30/21 Range/Units 13:42 WBC (4.8-10.8) K/uL RBC (4.2-5.4) M/uL Hgb (12.0-16.0) g/dL Hct (37-47) % MCV (80-100) fL MCH (25-34) pg MCHC (32-36) g/dL RDW Std Deviation (36.4-46.3) fL RDW Coeff of Ranulfo (11.5-14.5) % Plt Count (130-400) K/uL MPV (7.4-10.4) fL Immature Gran % (Auto) % Neut % (Auto) % Lymph % (Auto) % Mingo % (Auto) % Eos % (Auto) % Baso % (Auto) % Neut # (Auto) (1.4-6.5) K/uL Lymph # (Auto) (1.2-3.4) K/uL Mingo # (Auto) (0.11-0.59) K/uL Eos # (Auto) (0-0.5) K/uL Baso # (Auto) (0-0.2) K/uL Immature Gran # (Auto) (0.00-0.02) K/uL PT (9.0-12.0) Seconds INR (0.9-1.1) APTT (21.0-31.0) Seconds PTT Ratio ABG pH (7.35-7.45) ABG pCO2 (35-46) mmHg ABG pO2 (80-95) mmHg ABG HCO3 (19-24) mmol/L ABG O2 Saturation (90-95) % ABG Base Excess (-9-1.8) mEq/L Jose Ramon Test (Pos) Carboxyhemoglobin Cancelled % THgb Methemoglobin (0.0-1.5) % Barometric Pressure mm/Hg Oxygen Given Sodium (136-145) mmol/L Potassium (3.5-5.1) mmol/L Chloride (98-107) mmol/L Carbon Dioxide (21-32) mmol/L Anion Gap (3-11) BUN (7-18) mg/dl Creatinine (0.6-1.2) mg/dl Est Cr Clr Drug Dosing ml/min Est GFR ( Amer) ml/min Est GFR (Non-Af Amer) ml/min BUN/Creatinine Ratio (10-20) Glucose (70-99) mg/dl Calcium (8.5-10.1) mg/dl Magnesium (1.8-2.4) mg/dl Troponin I (0-0.045) ng/ml Imaging Data Radiologist's Impression: Chest CTA 04/30/21 13:01 CHEST CTA for PULMONARY ARTERIES CT DOSE: HISTORY: Atypical chest pain. Shortness of breath. TECHNIQUE: Multiaxial CT images of the chest were performed following the intrav enous administration of contrast to evaluate the pulmonary arteries. Maximal intensity projection images were also obtained. A dose lowering technique was utilized adhering to the principles of ALARA. COMPARISON STUDY: Chest CT 12/05/2010. FINDINGS: Limited views of the upper abdomen demonstrate a normal liver, spleen, and adrenal glands. The thyroid gland enhances normally. No mediastinal or hilar lymphadenopathy. No pleural or pericardial effusions. The heart is normal in size. Normal esophagus. Normal caliber thoracic aorta with no evidence for dissection. No filling defects within the pulmonary arteries to suggest a pulmonary embolus. No fractures within the visualized osseous structures. No pneumothorax. The central airways are patent. The lungs are clear. IMPRESSION: No evidence for pulmonary embolus. ACT 112: Negative or not required by law. Electronically signed by: Christophe Orellana M.D. 04/30/2021 3:[address] 04/30/21 13:[address] DOSE: 794.08 mGy.cm HISTORY: Headache. TECHNIQUE: Multiaxial CT images of the head were performed without the use of intravenous contrast. Automated exposure control was utilized for this study. A dose lowering technique was utilized adhering to the principles of ALARA. Comparison: Head CT 07/14/2018. Findings: The paranasal sinuses and mastoid air cells are clear. The calvarium and skull base are intact. The ventricles and sulci are within normal limits. There is no mass, hematoma, midline shift, or acute infarct. Impression: No acute intracranial abnormality. ACT 112: Negative or not required by law. Electronically signed by: Christophe Orellana M.D. 04/30/2021 3:07 PM ECG Data Indication: + SOB/dyspnea Rate (beats per minute): 65 Rhythm: + normal sinus ECG Intervals/blocks: + Normal MT and + Normal QT-c ECG ST segments: + Normal ST segments ECG Findings: + PVCs Additional Comments: QRS 72 MDM Narrative 1300: The patient was evaluated in room D8. A complete history and physical exam was performed Cardiac monitoring: An order was placed for continuous cardiac monitoring. The monitor shows a rate of 105 with sinus tachycardia rhythm Patient was seen immediately in the critical pathways bed D8. Patient was found to be hypoxic on room air in triage and patient was mainly placed on supplemental oxygen via nasal cannula. EMR reviewed. Patient was seen in the emergency department yesterday and had blood work done which showed normal white blood cell count, normal troponin, and normal D-dimer. Chest x-ray was negative. Patient also had a Covid influenza and RSV swab which were negative. On further discussion with the patient the patient does states she has a history of exkgm-[id number]-cdsv disease from stem cell transplant and follows up with [facility]. The patient does have perioral cyanosis in sinuses or fingernails. On further review with the patient, the patient was recently started on dapsone in November. There is strong concern for methemoglobinemia. Patient started on supplemental oxygen which improved her oxygen saturation. Patient's states that their friend is a physician and that he recommended them come to the back to the emergency department to have a CT angio of her chest to rule out PE. This will also be conducted. 1433: Vital signs stable on supplemental oxygen via nasal cannula. Labs do show methemoglobin level greater than 10. I spoke with the lab and they stated that they cannot give an exact number because that is the range and her level is too high that is out of range. Given the patient's clinical presentation level and the methemoglobin level it is thought that she is suffering from methemoglobinemia. Patient is stable on supplemental oxygen via nasal cannula. Blood pressure stable. Patient is not a candidate for methylene blue as she is currently on sertraline. Patient does state that she took sertraline today. Given the patient is on sertraline, methylene blue would be contraindicated due to potential serotonin syndrome reaction. Discussed with pharmacy and reviewed in up-to-date, and it stays excoriated acid can be given to help with patients with methemoglobinemia who have methylene blue contraindicated due to G6PD if patient is on SSRI. I did discuss this with the patient and they are willing to try the ascorbic acid. We will give 5 g IV. Patient does see hematology at [facility]. Spoke with Dr. Ahumada on-call hematology. 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 She is recommend stopping the dapsone immediately. She is okay with patient receiving ascorbic acid and does agree that the patient not receive methylene blue at this time given that she is on sertraline. Since the patient must stop dapsone immediately, she does recommend atovaquone 750 mg p.o. twice daily to prevent against any infection since patient is immunocompromised and on Prograf. I did discuss with Dr. Ahumada and confirmed that the patient can get atovaquone as antimalarials can cause methemoglobinemia reactions also and she stated that she is given atovaquone many times for people with methemoglobinemia induced by dapsone and she is not concerned about this worsening or reducing her methemoglobinemia again. Patient we will start atovaquone tomorrow as she took her dapsone recently. We will still conduct a CT of the chest rule out PE. 1528: Vital signs stable on supplemental oxygen via nasal cannula. CTA of the chest and CT of the head are within normal limits. ABG does confirm a arterial sample with PaO2 Of 147. [facility] team notified. Impression & Plan Hypoxia, Methemoglobinemia Discharge Plan Visit Data Chief Complaint: Illness Stated Complaint: HEADACHE, PULSE OX 75 ED Provider: Binu Schwartz Discharge Problem: Hypoxia, Methemoglobinemia Patient Disposition: Admitted As Inpatient Forms Stand Alone Forms: My [facility] Prescriptions Prescriptions: No Action sertraline 50 mg tablet 50 mg PO HS RF: 0 tacrolimus 1 mg capsule 2 mg PO Q12 RF: 0 acyclovir 400 mg tablet 400 mg PO Q12 RF: 0 dapsone 100 mg tablet 100 mg PO HS RF: 0 Referrals Referrals: Salvador Alston MD [Primary Care Provider] -
[2021-04-30 13:55] LABS: Basophils # (auto) 0.06 K/uL (0-0.2); Basophils % (auto) 0.6 %; Eosinophils # (auto) 0.08 K/uL (0-0.5); Eosinophils % (auto) 0.8 %; Hematocrit (blood only) 38.6 % (37-47); Hemoglobin 13.4 g/dL (12.0-16.0); Immature Granulocytes # (auto) 0.02 K/uL (0.00-0.02); Immature Granulocytes % (auto) 0.2 %; Lymphocytes # (auto) 3.49 K/uL (1.2-3.4); Lymphocytes % (auto) 33.8 %; Mean Corpuscular Hemoglobin 31.5 pg (25-34); Mean Corpuscular Hgb Conc 34.7 g/dL (32-36); Mean Corpuscular Volume 90.6 fL (80-100); Mean Platelet Volume 9.8 fL (7.4-10.4); Monocytes # (auto) 0.86 K/uL (0.11-0.59); Monocytes % (auto) 8.3 %; Neutrophils # (auto) 5.83 K/uL (1.4-6.5); Neutrophils % (auto) 56.3 %; Platelet Count 313 K/uL (130-400); RDW Coefficient of Variation 13.9 % (11.5-14.5); RDW Standard Deviation 45.2 fL (36.4-46.3); Red Blood Count 4.26 M/uL (4.2-5.4); White Blood Count 10.34 K/uL (4.8-10.8)
[2021-04-30 14:10] LABS: Partial Thromboplastin Time 25.9 Seconds (21.0-31.0); Prothrombin Time 10.3 Seconds (9.0-12.0)
[2021-04-30 14:12] LABS: BUN Creatinine Ratio 17.2 (10-20); Blood Urea Nitrogen 10 mg/dl (7-18); Calcium 9.5 mg/dl (8.5-10.1); Carbon Dioxide 24 mmol/L (21-32); Chloride 110 mmol/L (98-107); Est GFR (African American) 140.2 ml/min; Glucose 85 mg/dl (70-99); Potassium 3.8 mmol/L (3.5-5.1); Sodium 140 mmol/L (136-145)
--- NOTE | 2021-04-30 14:15 | Electrocardiogram Report ---
Test Reason : Blood Pressure : / mmHG Vent. Rate : 065 BPM Atrial Rate : 065 BPM P-R Int : 114 ms QRS Dur : 072 ms QT Int : 396 ms P-R-T Axes : 009 071 064 degrees QTc Int : 411 ms Normal sinus rhythm with sinus arrhythmia Nonspecific T wave abnormality Abnormal ECG When compared with ECG of 29-APR-2021 18:31, No significant change was found Confirmed by Jared Quintero ([id number]) on 04/30/2021 2:15:21 PM Referred By: Confirmed By:Jared Quintero
[2021-04-30 14:16] LABS: Troponin I < 0.015 ng/ml (0-0.045)
[2021-04-30] MEDS ORDERED: SODIUM CHLORIDE 0.9% IV ONE (14:30)
[2021-04-30] MEDS ORDERED: ASCORBIC ACID IV ONE (14:30)
[2021-04-30] MEDS ORDERED: OPTIRAY 320 125ml IV ONE (14:55)
[2021-04-30 15:02] LABS: Base Excess ABG 0.8 mEq/L (-9-1.8); HCO3 ABG 20 mmol/L (19-24); Oxygen Saturation ABG 94.7 % (90-95); PCO2 ABG 22 mmHg (35-46); PO2 ABG 147 mmHg (80-95)
[2021-04-30 15:04] LABS: pH ABG 7.58 (7.35-7.45)
[2021-04-30 15:05] LABS: Allen Test Pos (Pos)
--- NOTE | 2021-04-30 15:08 | CT Scan Report ---
HEAD CT NONCONTRAST CT DOSE: 794.08 mGy.cm HISTORY: Headache. TECHNIQUE: Multiaxial CT images of the head were performed without the use of intravenous contrast. A utomated exposure control was utilized for this study. A dose lowering technique was utilized adheri ng to the principles of ALARA. Comparison: Head CT 07/14/2018. Findings: The paranasal sinuses and mastoid air cells are clear. The calvarium and skull base are int act. The ventricles and sulci are within normal limits. There is no mass, hematoma, midline shift, or acute infarct. Impression: No acute intracranial abnormality. ACT 112: Negative or not required by law. Electronically signed by: Christophe Orellana M.D. 04/30/2021 3:07 PM
--- NOTE | 2021-04-30 15:15 | CT Scan Report ---
CHEST CTA for PULMONARY ARTERIES CT DOSE: HISTORY: Atypical chest pain. Shortness of breath. TECHNIQUE: Multiaxial CT images of the chest were performed following the intravenous administration of contrast to evaluate the pulmonary arteries. Maximal intensity projection images were also obtaine d. A dose lowering technique was utilized adhering to the principles of ALARA. COMPARISON STUDY: Chest CT 12/05/2010. FINDINGS: Limited views of the upper abdomen demonstrate a normal liver, spleen, and adrenal glands. The thyroid gland enhances normally. No mediastinal or hilar lymphadenopathy. No pleural or pericardi al effusions. The heart is normal in size. Normal esophagus. Normal caliber thoracic aorta with no ev idence for dissection. No filling defects within the pulmonary arteries to suggest a pulmonary embolu s. No fractures within the visualized osseous structures. No pneumothorax. The central airways are pa tent. The lungs are clear. IMPRESSION: No evidence for pulmonary embolus. ACT 112: Negative or not required by law. Electronically signed by: Christophe Orellana M.D. 04/30/2021 3:13 PM
--- NOTE | 2021-04-30 17:45 | History & Physical Report ---
Date of Service April 30, 2021 Assessment & Plan (1) Methemoglobinemia: Plan: 35 yo F w/ pMHx. 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 on Sertraline) - support oxygenation - order ABG if patient becomes more symptomatic and in AM - peripheral smear ordered for AM labs - recheck Methemoglobin level in the AM - consulted hematology ALL w/ concern for graft vs. host - continue Tacrolimus and Acyclovir - switching Dapsone to Atovaquone as above Depression - holding Sertraline overnight in-case Methylamine Blue is needed overnight - consider restarting in AM Code: full Diet: regular DVT: SCD's, Lovenox (2) Stem cells transplant status: History of Present Illness Chief Complaint: cyanosis Primary Care Provider: Salvador Alston MD Maricel Low has a past medical history significant for ALL that was diagnosed in 2008 s/p stem cell transplant done in [place] in June of 2009. She has had several episodes of rhabdomyolysis that were concerning for graft versus host disease, one episode in 2015 and she was placed on Prograf and Dapsone at that time without complication. She then had another episode of rhabdomyolysis in November after she had her son in September. She was placed on Dapsone at that time. She follows with Hematology at [place]. She was in [place] one week ago and developed a cold. She was at work at [employer] on day prior when she was noted to have purple/blue lips. 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 of 84 and was instructed by her PCP to go to the ER. At the ER her pulse ox. was normal at 92, she left but then returned after developing a headache and home pulse ox. reading in the 70's and discussion with a family friend who is a physician. She returned and was found to be hypoxic and cyanotic and was admitted. Our lab is only able to read values >10 reliably for Methemoglobin and due to the stability of the sample there is no send out for this lab. Partner Timbo would like to be updated with any changes # Allergies Allergy/AdvReac Type Severity Reaction Status Date / Time Sulfa (Sulfonamide Allergy Intermediate Vomit, Verified 04/30/21 14:15 Antibiotics) diarrhea chlorhexidine Allergy Mild RASH Verified 04/30/21 14:15 shellfish derived Allergy Vomiting Verified 04/30/21 14:15 Home Medications Medication Instructions Recorded Confirmed Type acyclovir 400 mg tablet 400 mg PO Q12 04/30/21 04/30/21 History dapsone 100 mg tablet 100 mg PO HS 04/30/21 04/30/21 History sertraline 50 mg tablet 50 mg PO HS 04/30/21 04/30/21 History tacrolimus 1 mg capsule, 2 mg PO Q12 04/30/21 04/30/21 History immediate-release Past Med/Surg History Medical History ALL (acute lymphoblastic leukemia) Status post allogenic stem cell transplant in [place] back in 2009 and has been in remission since that time. Cerebral venous sinus thrombosis During treatment for a LL which was provoked by L asparaginase and was treated with Lovenox for a few months. No repeat thromboses since that time. 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 Hypertrophy of nasal turbinates Leukemia in remission 2009 Vaginal bleeding before 22 weeks gestation Surgical History No history of previous surgery S/P colonoscopy Stem cells transplant status 2009 Family History Mother Hypertension Father Hypertension Social History Smoking Status: Never smoker Hx Alcohol Use: No Hx Substance Use: No Preferred Language: Arabic Communication Ability: Effective Visual Impairment: No Limitations Hearing Ability: Normal Records And Information Manager Required: No Beliefs That Will Affect Care: None marital status: marital status details: Timbo (38) [phone] Current Living Situation: Spouse Current Living Situation Comment: lives with spouse, 2 dogs. 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 [employer] Feels Safe at Home: Yes Seatbelt Use: always Assistive Devices: None Review of Systems Review of Systems: consitutional: denies fever, weight loss admits chills, nausea, night sweats (2 days prior) head: denies trauma admits headaches neurologic: denies syncope, slurring of speech, focal weakness ENT: admits rhinorrhea, stuffiness, sore throat Cardiac: denies chest pain, palpitations, leg swelling Pulm.: admits cough, shortness of breath with stairs and admits some small amount of yellow sputum GI: denies blood in stool admits diarrhea LBM yesterday : denies urgency, frequency, dysuria Physical Exam Constitutional: WD/WN, vitals as above Eyes: PERRL, conjunctivae normal, anicteric sclerae ENMT: Nose: no external nose abnormality Mouth: + lip abnormality (cyanosis) Neck: normal visual inspection Respiratory: normal respiratory effort, lungs clear to auscultation Cardiovascular: RRR, no murmur, no edema Chest (Breasts): normal inspection/palpation of breasts Gastrointestinal (Abdomen): normal bowel sounds, soft, nontender, no hepatosplenomegaly Musculoskeletal: Head/Neck/Chest: normocephalic and head atraumatic Extremities: no cyanosis and no clubbing Skin: no rashes, warm and dry Neurologic: no focal motor deficits Psychiatric: A+Ox3, euthymic affect Results & Data Results & Data ([facility]) Vital Signs (Past 12 Hours) Vital Signs Temp Pulse Resp BP Pulse Ox 04/30/21 16:00 74 19 91/65 L 93 04/30/21 15:30 71 17 111/78 90 04/30/21 15:04 119/71 04/30/21 14:30 78 22 100/74 93 04/30/21 14:15 79 23 90 04/30/21 13:51 89 L 04/30/21 13:45 89 L 04/30/21 12:44 96 04/30/21 12:37 36.5 C 106 H 16 107/69 89 L CBC Results Results Complete Blood Count Results: RBC 3.95 M/uL (4.2-5.4) L 05/01/21 WBC 7.21 K/uL (4.8-10.8) 05/01/21 Hgb 12.2 g/dL (12.0-16.0) 05/01/21 Hct 36.8 % (37-47) L 05/01/21 Plt Count 295 K/uL (130-400) 05/01/21 Code Status & VTE Plan VTE Prophylaxis Plan VTE Prophylaxis will be ordered: Yes Supervising Physician Co-Signing Physician Notes During face to face interview, patient was seen and examined at bedside. Discussed case with Dr. Escobar. Patient johnny be admitted with methemoglobinemia. Symptoms point towards likely 20%-40% of methemoglobulin. Will reassess level in AM. Patient given IV vitamin C. Likely due to dapsone. will switch to atovaquone and monitor. Continue supportive care. I reviewed above note and agree with it. Resident Activity Tracking Resident Involvement: Resident Care Provided Care Provided: Adult Hospital Medicine
[2021-04-30] MEDS ORDERED: POLYETHYLENE (MIRALAX) 17 GM PACK PO PRN (20:50)
[2021-04-30] MEDS ORDERED: ACETAMINOPHEN 325 MG TAB PO PRN (20:50)
[2021-04-30] MEDS: ASCORBIC ACID IV SCH (21:32)
[2021-04-30] MEDS: SODIUM CHLORIDE 0.9% IV SCH (21:32)
[2021-04-30] MEDS: ATOVAQUONE 750 MG/5 ML UDC PO SCH (22:23)
[2021-04-30] MEDS: SERTRALINE HCL 50 MG TABLET PO SCH (22:25)
[2021-04-30] MEDS: ACYCLOVIR 400 MG TAB PO SCH (22:25)
[2021-04-30] MEDS: TACROLIMUS 1 MG CAP PO SCH (22:26)
[2021-05-01] MEDS: SODIUM CHLORIDE 0.9% IV SCH (02:48)
[2021-05-01] MEDS: ASCORBIC ACID IV SCH (02:48)
[2021-05-01 06:01] LABS: Basophils # (auto) 0.04 K/uL (0-0.2); Basophils % (auto) 0.6 %; Eosinophils # (auto) 0.16 K/uL (0-0.5); Eosinophils % (auto) 2.2 %; Hematocrit (blood only) 36.8 % (37-47); Hemoglobin 12.2 g/dL (12.0-16.0); Lymphocytes # (auto) 3.05 K/uL (1.2-3.4); Lymphocytes % (auto) 42.3 %; Mean Corpuscular Hemoglobin 30.9 pg (25-34); Mean Corpuscular Hgb Conc 33.2 g/dL (32-36); Mean Corpuscular Volume 93.2 fL (80-100); Mean Platelet Volume 9.7 fL (7.4-10.4); Monocytes # (auto) 0.77 K/uL (0.11-0.59); Monocytes % (auto) 10.7 %; Neutrophils # (auto) 3.19 K/uL (1.4-6.5); Neutrophils % (auto) 44.2 %; Platelet Count 295 K/uL (130-400); RDW Coefficient of Variation 14.3 % (11.5-14.5); RDW Standard Deviation 48.6 fL (36.4-46.3); Red Blood Count 3.95 M/uL (4.2-5.4); White Blood Count 7.21 K/uL (4.8-10.8)
[2021-05-01 06:36] LABS: BUN Creatinine Ratio 13.5 (10-20); Calcium 8.8 mg/dl (8.5-10.1); Est GFR (Non-African American) 121.7 ml/min; Potassium 3.9 mmol/L (3.5-5.1)
[2021-05-01 06:41] LABS: Albumin Globulin Ratio 1.4 (0.9-2); Bilirubin,Total 1.8 mg/dl (0.2-1); Globulin 2.8 gm/dl (2.5-4.0); Total Protein 6.8 gm/dl (6.4-8.2)
[2021-05-01 06:50] LABS: RBC Morphology Unremarkable
--- NOTE | 2021-05-01 08:11 | Hospitalist Progress Note ---
Date of Service May 01, 2021 Assessment & Plan (1) Methemoglobinemia: Plan: 35 yo F w/ pMHx. 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 - Methemoglobin downtrending to 8.6. - stopped Dapsone -> switched to Atovaquone per [facility]ology @ 750 mg Q12H - given IV Ascorbic acid 5,000 mg in the ER. - avoiding Methylamine Blue as this can precipitate serotonin syndrome (pt. on Sertraline) -Given latest reading of Methemoglobin level below 10, stopped IV Ascorbic acid. - supportive oxygenation as needed - order ABG if patient becomes more symptomatic and in AM - Peripheral smear shows normochromic, normocytic appearing erythrocytes w/o significant anisopoikilocytosis. Polychromatophilic cells. - Morning Methemoglobin level - Continue to monitor symptoms. ALL w/ concern for graft vs. host - continue Tacrolimus and Acyclovir - switching Dapsone to Atovaquone as above Depression - holding Sertraline overnight in-case Methylamine Blue is needed overnight - consider restarting in AM Code: full Diet: regular DVT: SCD's, Lovenox (2) Stem cells transplant status: Admission and Anticipated Discharge Date Admission Date: April 30, 2021 Supervising Physician Co-Signing Physician Notes During face to face interview, patient was seen and examined at bedside. Discussed case with Dr. Madden. Patient johnny be admitted with methemoglobinemia. Likely due to dapsone. will switch to atovaquone and monitor. Symptoms point towards likely 20%-40% of methemoglobulin. Repeat levels are at 8. Patient however received 15 grams of Vitamin C. will hold further treatments as ma cause hypotension, and urinary stones. Patient also still having dizziness and requiring intermittent oxygen today. will monitor overnight and likely discharge in AM if levels remain stable. Continue supportive care. I reviewed above note and agree with it. Subjective Patient seen at the bedside this morning. Patient stated she feels back to baseline breathing at rest but still short of breath on exertion when walking to the bathroom this morning. Denies headache, chest pain, fevers, chills. Review of Systems Review of Systems: All systems reviewed & are unremarkable except as noted in HPI & below Physical Exam Constitutional: WD/WN, vitals as above Respiratory: normal respiratory effort, lungs clear to auscultation Cardiovascular: RRR, no murmur, no edema Results & Data Results & Data ([facility]) Vital Signs (Past 12 Hours) Vital Signs Pulse Pulse Resp BP BP Pulse Ox 05/01/21 03:29 67 16 97/68 L 95 04/30/21 22:31 74 19 103/69 92 04/30/21 22:30 71 17 94 04/30/21 22:00 75 17 108/67 93 04/30/21 21:30 80 17 103/74 93 04/30/21 21:01 74 15 85/63 L 94 04/30/21 21:00 75 14 94 04/30/21 20:30 66 18 113/75 93 Resident Activity Tracking Resident Involvement: Resident Care Provided Care Provided: Adult Hospital Medicine
--- NOTE | 2021-05-01 08:59 | Billing Data ---
Date of Service April 30, 2021 Coding Level of Care Code 98817 Initial Inpt Care Lvl 3
[2021-05-01] MEDS: ENOXAPARIN INJ 40 MG/0.4 ML SYR SQ SCH (11:06)
[2021-05-01] MEDS: ATOVAQUONE 750 MG/5 ML UDC PO SCH ×2 (11:06→20:01)
[2021-05-01] MEDS: ACYCLOVIR 400 MG TAB PO SCH ×2 (11:06→19:59)
[2021-05-01] MEDS: TACROLIMUS 1 MG CAP PO SCH ×2 (11:06→20:03)
[2021-05-01] MEDS: SERTRALINE HCL 50 MG TABLET PO SCH (20:00)
--- NOTE | 2021-05-01 20:04 | Billing Data ---
Date of Service May 01, 2021 Coding Level of Care Code 11577 Subseq Hosp Care Lvl 2
[2021-05-01] MEDS ORDERED: SERTRALINE HCL 50 MG TABLET PO SCH (21:00)
--- NOTE | 2021-05-02 07:37 | Hospitalist Progress Note ---
Date of Service May 02, 2021 Assessment & Plan (1) Methemoglobinemia: Plan: 35 yo F w/ pMHx. 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 - Methemoglobin downtrending to 8.6. - stopped Dapsone -> switched to Atovaquone per [facility] hematology @ 750 mg Q12H - given IV Ascorbic acid 5,000 mg in the ER. - avoiding Methylamine Blue as this can precipitate serotonin syndrome (pt. on Sertraline) -Given latest reading of Methemoglobin level below 10, stopped IV Ascorbic acid. - supportive oxygenation as needed - order ABG if patient becomes more symptomatic and in AM - Peripheral smear shows normochromic, normocytic appearing erythrocytes w/o significant anisopoikilocytosis. Polychromatophilic cells. - Morning Methemoglobin level - Continue to monitor symptoms. ALL w/ concern for graft vs. host - continue Tacrolimus and Acyclovir - switching Dapsone to Atovaquone as above Depression - holding Sertraline overnight in-case Methylamine Blue is needed overnight - consider restarting in AM Code: full Diet: regular DVT: SCD's, Lovenox (2) Stem cells transplant status: Admission and Anticipated Discharge Date Admission Date: April 30, 2021 Subjective Patient seen at the bedside this morning. Physical Exam Constitutional: WD/WN, vitals as above Respiratory: normal respiratory effort, lungs clear to auscultation Cardiovascular: RRR, no murmur, no edema Gastrointestinal (Abdomen): normal bowel sounds, soft, nontender, no hepatosplenomegaly Skin: no rashes, warm and dry Results & Data Results & Data ([facility]) Vital Signs (Past 12 Hours) Vital Signs Temp Pulse Pulse Resp BP Pulse Ox 05/02/21 07:10 36.7 C 75 20 94/57 L 91 05/02/21 04:41 36.6 C 69 18 108/62 97 05/01/21 22:57 36.7 C 74 18 99/52 L 96 05/01/21 22:19 68
[2021-05-02 07:51] LABS: Basophils # (auto) 0.03 K/uL (0-0.2); Basophils % (auto) 0.5 %; Eosinophils # (auto) 0.13 K/uL (0-0.5); Eosinophils % (auto) 2.1 %; Hematocrit (blood only) 37.6 % (37-47); Hemoglobin 12.6 g/dL (12.0-16.0); Immature Granulocytes # (auto) 0.02 K/uL (0.00-0.02); Immature Granulocytes % (auto) 0.3 %; Lymphocytes # (auto) 2.12 K/uL (1.2-3.4); Lymphocytes % (auto) 34.4 %; Mean Corpuscular Hemoglobin 30.9 pg (25-34); Mean Corpuscular Hgb Conc 33.5 g/dL (32-36); Mean Corpuscular Volume 92.2 fL (80-100); Mean Platelet Volume 9.8 fL (7.4-10.4); Monocytes # (auto) 0.65 K/uL (0.11-0.59); Monocytes % (auto) 10.6 %; Neutrophils # (auto) 3.21 K/uL (1.4-6.5); Neutrophils % (auto) 52.1 %; Platelet Count 299 K/uL (130-400); RDW Coefficient of Variation 14.3 % (11.5-14.5); RDW Standard Deviation 47.7 fL (36.4-46.3); Red Blood Count 4.08 M/uL (4.2-5.4); White Blood Count 6.16 K/uL (4.8-10.8)
[2021-05-02] MEDS: ACYCLOVIR 400 MG TAB PO SCH (08:08)
[2021-05-02] MEDS: TACROLIMUS 1 MG CAP PO SCH (08:08)
[2021-05-02] MEDS: ENOXAPARIN INJ 40 MG/0.4 ML SYR SQ SCH (08:08)
[2021-05-02] MEDS: ATOVAQUONE 750 MG/5 ML UDC PO SCH (08:08)
[2021-05-02 08:23] LABS: Albumin Level 3.9 gm/dl (3.4-5.0); BUN Creatinine Ratio 11.6 (10-20); Calcium 9.1 mg/dl (8.5-10.1); Creatinine Clr Calc Pharmacy 125.4 ml/min; Est GFR (African American) 146.4 ml/min; Est GFR (Non-African American) 126.3 ml/min; Potassium 3.8 mmol/L (3.5-5.1)
[2021-05-02 08:25] LABS: Albumin Globulin Ratio 1.2 (0.9-2); Globulin 3.2 gm/dl (2.5-4.0); Total Protein 7.1 gm/dl (6.4-8.2)
[2021-05-02 08:53] LABS: Bilirubin,Total 2.3 mg/dl (0.2-1)
[2021-05-02] MEDS ORDERED: SODIUM CHLORIDE 0.9% 1000ML 1,000 ML IV SCH (10:15)
--- NOTE | 2021-05-02 20:47 | Discharge Summary ---
Date of Service May 02, 2021 Admission HPI Per Admitting Provider Maricel Low has a past medical history significant for ALL that was diagnosed in 2008 s/p stem cell transplant done in [place] in June of 2009. She has had several episodes of rhabdomyolysis that were concerning for graft versus host disease, one episode in 2015 and she was placed on Prograf and Dapsone at that time without complication. She then had another episode of rhabdomyolysis in November after she had her son in September. She was placed on Dapsone at that time. She follows with Hematology at [facility]. She was in [place] one week ago and developed a cold. She was at work at [employer] on day prior when she was noted to have purple/blue lips. 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 of 84 and was instructed by her PCP to go to the ER. At the ER her pulse ox. was normal at 92, she left but then returned after developing a headache and home pulse ox. reading in the 70's and discussion with a family friend who is a physician. She returned and was found to be hypoxic and cyanotic and was admitted. Our lab is only able to read values >10 reliably for Methemoglobin and due to the stability of the sample there is no send out for this lab. Partner Timbo would like to be updated with any changes # Admission Exam Per Admitting Provider Constitutional: WD/WN, vitals as above Eyes: PERRL, conjunctivae normal, anicteric sclerae ENMT: Nose: no external nose abnormality Mouth: + lip abnormality (cyanosis) Neck: normal visual inspection Respiratory: normal respiratory effort, lungs clear to auscultation Cardiovascular: RRR, no murmur, no edema Chest (Breasts): normal inspection/palpation of breasts Gastrointestinal (Abdomen): normal bowel sounds, soft, nontender, no hepatosplenomegaly Musculoskeletal: Head/Neck/Chest: normocephalic and head atraumatic Extremities: no cyanosis and no clubbing Skin: no rashes, warm and dry Neurologic: no focal motor deficits Psychiatric: A+Ox3, euthymic affect Principal Diagnosis Dapsone induced Methemoglobinemia Discharge Exam Constitutional WD/WN, vitals as above Respiratory normal respiratory effort, lungs clear to auscultation Cardiovascular RRR, no murmur, no edema Gastrointestinal (Abdomen) normal bowel sounds, soft, nontender, no hepatosplenomegaly Skin no rashes, warm and dry Discharge Data Allergies Allergy/AdvReac Type Severity Reaction Status Date / Time Sulfa (Sulfonamide Allergy Intermediate Vomit, Verified 04/30/21 14:15 Antibiotics) diarrhea chlorhexidine Allergy Mild RASH Verified 04/30/21 14:15 shellfish derived Allergy Vomiting Verified 04/30/21 14:15 Consultations 04/30/21 15:22 ED Decision to Admit Stat Ordered Studies 04/30/21 13:01 CT angio chest PE protocol Stat 04/30/21 13:30 CT head/brain wo con Stat Hospital Course (1) Methemoglobinemia: 35 yo F w/ pMHx. 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 - Methemoglobin downtrending to 8.6 05/01, 05/02 9.6. - stopped Dapsone -> switched to Atovaquone per [facility] hematology @ 750 mg Q12H - given IV Ascorbic acid 5,000 mg in the ER. - avoided Methylamine Blue as this can precipitate serotonin syndrome (pt. on Sertraline) - Ascorbic acid was stopped when Methemoglobin level seen below 10 (lab can only read up to a value of 10 for Methemoglobin). - Given supportive oxygenation as needed - Peripheral smear 05/01: No significant morphologic abnormalities are seen. Specifically, I do not see Fabian bodies or other changes that would suggest oxidative stress or hemolysis. The hemoglobin is noted to be on the lower end of the normal range. - Patient without symptoms at time of discharge. - Told patient to go to lab on Thursday post discharge for methemoglobin level, follow up with PCP within a week, follow up with Hematology at [facility] within the next few weeks. ALL w/ concern for graft vs. host - switching Dapsone to Atovaquone as above - Gave patient prescription for Atovaquone outpatient until she can see hematology. (2) Stem cells transplant status: Total Time Total Time Spent Total Time Spent (In Minutes): Please see attending attestation. Discharge Plan Discharge Items Patient Disposition: Home - Self-Care Reason For Visit: CYANOSIS Discharge Diagnosis: Dapsone induced Methemoglobinemia Activity: Per Instructions section Non-emergency contact: Primary Care Provider Call non-emergency contact if: your symptoms worsen Follow-up/Referrals: Salvador Alston MD [Primary Care Provider] - 05/14/21 11:20 am Diet: Regular Addtl Attending Provider Instructions: A discharge summary will be sent to your primary care physician to ensure continuity of care. You came into the hospital for low oxygen levels. You were found to have an elevated methemoglobin level secondary to the dapsone medication you were taking. Your dapsone was stopped and switched to atovaquone at the request of hematology from [facility]. You were given a course of intravenous ascorbic acid for treatment of the elevated methemoglobin. After treatment your methemoglobin level came down to a safe level. Based on your symptoms getting better over the course of your hospital stay we feel you are able to return home at this time with follow up with hematology with [facility] and your primary care doctor. We have ordered another methemeglobin level for you for Thursday. Please come back to [facility] assistant front desk manager for the laboratory blood draw. Follow-up: * You should be seen by your primary physician within the next week. * Please go on Thursday for a follow up blood draw for methemoglobin. * Please follow up with your [facility] hematology doctor within the next few weeks for further management. Medications: Your medication list has been reviewed and reconciled upon discharge to ensure accuracy and continuity of care. An updated list of all your medications is included with your hospital discharge paperwork. Please review this list closely, and make note of any changes. * Your dapsone was switched to atovaquone 750mg to be taken by mouth two times a day. Take your medications as instructed; do not skip a dose of your medicines. Make sure all of your doctors know every medicine you are taking (including [id number] medicines, vitamins, and supplements). let your primary care provider know before taking any new medicines because some of these may interact with your current medications, or may make your symptoms worse. CONTACT YOUR PRIMARY CARE PROVIDER if you experience any of the following: * Fevers or shaking chills * Shortness of breath not relieved by inhalers, fainting, oxygen levels below 88%. * Sudden abdominal distension not relieved by catheterization. * Difficulty following your treatment plan, or difficulty taking medications CALL 911 OR GO TO THE EMERGENCY DEPARTMENT if you experience any of the following: * Sudden, severe abdominal pain or nausea/vomiting * Severe chest pain, or chest pain that radiates (moves) to your jaw or arm * Sudden, severe shortness of breath or difficulty breathing It was was our pleasure taking care of you here at [facility] . Thank you for allowing us to participate in your care. Pending Studies at Discharge: No Stand-Alone Forms: My [facility] [employer], Smoking Cessation Medications and DC Order Prescriptions: New atovaquone 750 mg/5 mL suspension 750 mg PO Q12H Qty: 210 RF: 0 Continued sertraline 50 mg tablet 50 mg PO HS RF: 0 tacrolimus 1 mg capsule 2 mg PO Q12 RF: 0 acyclovir 400 mg tablet 400 mg PO Q12 RF: 0 Discontinued dapsone 100 mg tablet 100 mg PO HS RF: 0 Discharge Orders: Discharge Order (Routine); Ordered 05/02/21 Ordered By: Jose Chu Admission Data Admit Date/Time: 04/30/21 17:18 Attending Provider: Ernst Yoon Admit Provider: Gilmar Escobar Primary Care Provider: Salvador Alston V. Other Providers: Taylor Erwin Other Interventions: Discharge Summary Assessment (RN) Last Done: 05/02/21 17:34 Resident Activity Tracking Resident Involvement: Resident Care Provided Care Provided: Adult Hospital Medicine
== END 2021-05-02 18:25 | disposition home or self-care (01) | DRG 811 ==
LOC: ED 12:34 → EDINP 17:18 → 2N 20:56